=== PATIENT | male | born 1990 | race Caucasian/White ===

== ENCOUNTER 2020-03-22 01:33 | Emergency (ER) | payer MEDICAID ==
[~2020-03-22] VITALS: Ht 185.4 cm; Wt 67.9 kg
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
[2020-03-22] MEDS ORDERED: ONDANSETRON 2MG/ML, 2ML IVPush ONE (02:00)
[2020-03-22] MEDS ORDERED: MORPHINE SULFATE 4 MG/ML, 1ML IVPush ONE (02:00)
[2020-03-22] MEDS ORDERED: ONDANSETRON 2MG/ML, 2ML ONE (02:02)
[2020-03-22] MEDS ORDERED: MORPHINE SULFATE 4 MG/ML, 1ML ONE (02:03)
--- NOTE | 2020-03-22 02:21 | NUR ---
PT TO AND FROM IMAGING IN WHEELCHAIR.
[2020-03-22] MEDS ORDERED: HYDROcodone/APAP 5/325 TABLET PO ONE (03:00)
[2020-03-22] MEDS ORDERED: BACITRACIN ZINC OINT 500U/GM, 0.9 GM TP ONE (03:00)
[2020-03-22] MEDS ORDERED: HYDROcodone/APAP 5/325 TABLET ONE (03:08)
[2020-03-22] MEDS ORDERED: NEOSPORIN OINT. PKT 1 PACKET ONE (03:08)
[2020-03-22 03:21] VITALS: BP 134/84
== END 2020-03-22 03:35 | disposition home or self-care (01) ==
LOC: ED 02:45
DX: S52.135A Nondisplaced fracture of neck of left radius, initial encounter for closed fracture (principal); G89.11 Acute pain due to trauma; F17.210 Nicotine dependence, cigarettes, uncomplicated; V00.131A Fall from skateboard, initial encounter; Y93.89 Activity, other specified; Y92.488 Other paved roadways as the place of occurrence of the external cause; Y99.8 Other external cause status
CPT/HCPCS: 29105; 73080; 96374; 99283; J2270